=== PATIENT | female | born 1965 | race Caucasian/White ===

== ENCOUNTER 2019-11-27 10:18 | Outpatient (CLI) | payer OTHER, SELFPAY ==
--- NOTE | 2019-11-27 10:38 | MM_ITS ---
WS: [id number] SCREENING DIGITAL MAMMOGRAM WITH CAD HISTORY: SCREENING COMPARISON: None available. Bilateral CC and MLO views submitted. Computer aided detection analyzed. Breast composition: There are scattered areas of fibroglandular density. 10 x 10 mm rounded mass near 7:00, middle depth. Margins are slightly obscured and irregular. Otherwise the breast parenchyma is normal. No suspicious calcification. LEFT breast: Spot compression views (CC and MLO). True ML. Ultrasound to follow if abnormality kamari kemp MM/[place] [id number] IMPRESSION: BI-RADS: 0-Incomplete: Need additional imaging evaluation FOLLOW UP: Need Additional Imaging
== END 2019-11-27 10:19 | disposition home or self-care (01) ==
LOC: RADSHAW 10:26
PROVIDERS: Visit Provider Nurse Practitioner Family
DX: Z12.31 Encounter for screening mammogram for malignant neoplasm of breast (principal)
CPT/HCPCS: 77067

== ENCOUNTER 2019-12-25 07:28 | Outpatient (CLI) | payer OTHER, SELFPAY ==
--- NOTE | 2019-12-25 07:37 | US_ITS ---
WS: [id number] ADDITIONAL VIEWS LEFT MAMMOGRAM LEFT BREAST ULTRASOUND HISTORY: ABNORMAL/INCONCLUSIVE FINDING ON IMAGING OF BREAST COMPARISON: 11/27/2019 LEFT MAMMOGRAM: Spot compression views and true ML. Rounded mass of increased density at 7:00 persists on additional views. Margins are partially obscure d. No spiculation or distortion. LEFT BREAST ULTRASOUND 2-D and color Doppler imaging submitted. Ultrasound is directed to the 7:00 axis, 3 cm from the nipple. There is a slightly ovoid cystic mass measuring 1.0 x 0.6 cm. There is through transmission. No solid component. US/US breast LT limited* [id number] IMPRESSION: BI-RADS: 2-Benign FOLLOW UP: 1 Year Follow-up
== END 2019-12-25 07:29 | disposition home or self-care (01) ==
LOC: RADSHAW 07:31
PROVIDERS: PCP Nurse Practitioner Family; Visit Provider Nurse Practitioner Family
DX: R92.8 Other abnormal and inconclusive findings on diagnostic imaging of breast (principal); N63.24 Unspecified lump in the left breast, lower inner quadrant
CPT/HCPCS: 76642; 77065

== ENCOUNTER 2023-11-08 13:27 | Outpatient (CLI) | payer OTHER, SELFPAY ==
--- NOTE | 2023-11-08 14:00 | MM_ITS ---
WS: [id number] BILATERAL 3D TOMOSYNTHESIS DIGITAL SCREENING MAMMOGRAPHY WITH CAD CLINICAL INFORMATION: SCREENING HISTORY: Screening mammogram. No current complaints. COMPARISON: 2020 TECHNIQUE: Bilateral CC and MLO views. FINDINGS: Scattered fibroglandular densities bilaterally. No suspicious focal mass, asymmetry, calcifications, or architectural distortion. No evidence of malignancy. Decreased size of the previously described cy st 7 o'clock position LEFT breast. Nodular parenchymal tissue bilaterally. A few tiny incidental punc sifuentes calcifications. IMPRESSION: MM/[place] [id number] BI-RADS: 2-Benign FOLLOW UP: 1 Year Follow-up Recommend return to annual screening mammography.
== END 2023-11-08 13:28 | disposition home or self-care (01) ==
LOC: MOBLMAM 13:35
PROVIDERS: PCP Advanced Practice Midwife; Visit Provider Advanced Practice Midwife
DX: Z12.31 Encounter for screening mammogram for malignant neoplasm of breast (principal)
CPT/HCPCS: 77063; 77067

== ENCOUNTER 2025-10-02 09:32 | Outpatient (CLI) | payer OTHER, SELFPAY ==
--- NOTE | 2025-10-02 14:20 | MM_ITS ---
WS: [id number] BILATERAL SCREENING DIGITAL TOMOSYNTHESIS MAMMOGRAM WITH CAD HISTORY: SCREENING COMPARISON: 11/08/2023, 12/25/2019 Bilateral CC and MLO views with tomosynthesis and synthetic mammography submitted. Computer aided detection analyzed. Breast composition: There are scattered areas of fibroglandular density. No suspicious masses, microcalcifications or architectural distortion. Bilateral ovoid breast masses are identified. These have been present since 2019 with no increase in size. Most consistent with lymph nodes. MM/MM scr tomosynthesis [id number] IMPRESSION: BI-RADS: 2 - Benign. FOLLOW UP: 1 Year Follow-up
== END 2025-10-02 09:33 | disposition home or self-care (01) ==
LOC: MOBLMAM 09:38
PROVIDERS: PCP Student in an Organized Health Care Education/Training Program; Visit Provider Student in an Organized Health Care Education/Training Program
DX: Z12.31 Encounter for screening mammogram for malignant neoplasm of breast (principal); R92.323 Mammographic fibroglandular density, bilateral breasts; N63.20 Unspecified lump in the left breast, unspecified quadrant; N63.10 Unspecified lump in the right breast, unspecified quadrant
CPT/HCPCS: 77063; 77067